=== PATIENT | female | born 1955 | race American Indian/Alaskan Native ===

== ENCOUNTER 2017-10-19 15:26 | Emergency (ER) | payer BC ==
[2017-10-19 15:33] VITALS: BP 153/82
--- NOTE | 2017-10-19 16:13 | Emergency Department Report ---
Eye Injury/Foreign Body - HPI Duration: 2 Days Eye Location: Left Severity: Moderate Eye Symptoms: Eye Pain: Yes, Blurred Vision: Yes, Eye Redness: Yes, Grinding/ Hammering Metal: No, Used Eye Protection: No, Contact Lens Use: No, Recalls Injury: No, Photophobia: Yes Other History: Patient is a nurse here at the hospital. The patient is a 62- year-old female who presents with left eye pain. Patient states whenever like his eye becomes intensely painful. Patient noted 2 days ago she started getting some mild redness to the eye itching and burning. ED Review of Systems ROS: Stated complaint: EYE IRRITATION Other details as noted in HPI Comment: All other systems reviewed and negative ED Past Medical Hx - Past Medical History Previous Medical History?: No - Surgical History Past Surgical History?: Yes Additional Surgical History: Tubal ligation - Social History Smoking Status: Never Smoker Substance Use Type: None - Medications Home Medications: Home Medications Medication Instructions Recorded Confirmed Last Taken Type HYDROcodone/APAP 5-325 [[place] 1 each PO Q6HR PRN #12 tablet 10/19/17 Unknown Rx 5/325] Homatropine HBr [Homatropine 1 drop OP BID 2 Days #5 ml 10/19/17 Unknown Rx Hydrobromide] Moxifloxacin HCl [Vigamox 0.5%] 1 drop OP Q8HR #1 bottle 10/19/17 Unknown Rx Naphazoline HCl/Pheniramine 1 drop OP TID #1 bottle 10/19/17 Unknown Rx [Naphcon-A Eye Drops] Eye Injury Exam - Exam General: Vital signs noted. No distress. Alert and acting appropriately. Patient has pain with consensual light reflex. Left eye has scleral injection. Extraocular movements are intact. Patient's heart and lungs are within normal limits general she is an O 3 in no acute distress. ED Course Vital Signs 10/19/17 15:30 Temperature 98.4 F Pulse Rate 65 Respiratory 16 Rate Blood Pressure 153/82 O2 Sat by Pulse 97 Oximetry ED Medical Decision Making - Medical Decision Making Patient will be started on Vigamox Naphcon and homatropine Critical care attestation.: If time is entered above; I have spent that time in minutes in the direct care of this critically ill patient, excluding procedure time. ED Disposition Clinical Impression: Bacterial conjunctivitis of left eye, Iritis of left eye Disposition: [id number] TO HOME OR SELFCARE Is pt being admited?: No Does the pt Need Aspirin: No Condition: Stable Instructions: Iritis (ED) Prescriptions: Homatropine HBr [Homatropine Hydrobromide] 1 drop OP BID 2 Days #5 ml HYDROcodone/APAP 5-325 [[place] 5/325] 1 each PO Q6HR PRN #12 tablet PRN Reason: Pain Moxifloxacin HCl [Vigamox 0.5%] 1 drop OP Q8HR #1 bottle Naphazoline HCl/Pheniramine [Naphcon-A Eye Drops] 1 drop OP TID #1 bottle Referrals: RYAN BLOUNT MD [Staff Physician] - 3-5 Days
== END 2017-10-19 16:32 | disposition home or self-care (01) ==
LOC: ED 15:26
DX: H10.89 Other conjunctivitis (principal); H20.9 Unspecified iridocyclitis; Z98.51 Tubal ligation status
CPT/HCPCS: 99282

== ENCOUNTER 2020-06-03 09:25 | Outpatient (CLI) | payer BC ==
--- NOTE | 2020-06-03 11:54 | Mammography Report ---
BILATERAL DIGITAL SCREENING MAMMOGRAM WITH CAD HISTORY: Screening mammogram. TECHNIQUE: Routine digital mammographic imaging performed. This examination was interpreted with minnie harp benefit of Computer-aided Detection analysis. COMPARISON: None currently available. The patient reports prior mammograms at [facility]. We will request these for comparison purposes. FINDINGS: Breast Density: scattered fibroglandular appearance of the breast tissue. Digital CC and MLO views demonstrate suspected low-density oval lobulated lesion in the left upper ou ter breast. No suspicious findings within the right breast. IMPRESSION: Suspected low-density oval lobulated lesion left upper outer breast. The patient reports prior mammo grams at an outside facility. These will be requested for comparison. An addendum will be added to is report once those images are available. BIRADS 0-Incomplete: Needs additional imaging evaluation FURTHER INFORMATION: According to the [employer], yearly mammograms are recommend ed starting at age 40 and continuing as long as a woman is in good health. Clinical Breast Exams shou ld be part of a periodic health exam-about every 3 years for women in their 20s and 30s and every yea r for women 40 and over. Breast self exam is an option for women starting in their 20s. Any breast ch kendal noted on a breast self exam should be reported promptly to the patient's healthcare provider. Br east MRI is recommended for women with an approximately 20-25% or greater lifetime risk of breast can cer, including women with a strong family history of breast or ovarian cancer and women who have been treated for Hodgkin's disease. A negative Mammography report should not discourage follow up or biopsy of a clinically significant f inding and/or abnormality. Dense breast tissue may obscure small neoplasms. The patient will be entered into a reminder system with a target due date for the next screening mamm ogram. Signer Name: Mike Kelly MD Signed: 06/03/2020 11:49 AM Workstation Name: [id number]
== END 2020-06-03 09:26 | disposition home or self-care (01) ==
LOC: MAMMO 09:25
PROVIDERS: ATTEND Physician Assistant Medical
DX: Z12.31 Encounter for screening mammogram for malignant neoplasm of breast (principal)
CPT/HCPCS: 77067

== ENCOUNTER 2021-09-28 10:27 | Outpatient (CLI) | payer BC ==
--- NOTE | 2021-09-29 11:04 | Mammography Report ---
DIGITAL SCREENING MAMMOGRAM WITH CAD, 09/28/2021 CLINICAL INFORMATION / INDICATION: Routine screening TECHNIQUE: Digital bilateral 2D mammography was obtained in the craniocaudal and mediolateral obliqu e projections. This examination was interpreted with the benefit of Computer-Aided Detection analysis . COMPARISON: 06/03/2020 FINDINGS: Breast Density: There are scattered areas of fibroglandular density. No dominant mass, suspicious calcifications, or architectural distortion in either breast. IMPRESSION: No mammographic evidence of malignancy. Follow up recommendation: Routine yearly BI-RADS Category 1: NEGATIVE A "normal" or negative report should not discourage follow up or biopsy of a clinically significant f inding. A written summary of these findings will be mailed to the patient. The patient will be entered into a mammography reporting system which will generate a reminder letter for the patient's next appointmen t at the appropriate interval. The [employer] recommends yearly mammograms starting at age 40 and continuing as l manav as a woman is in good health. Breast MRI is recommended for women with an approximate 20-25% or greater lifetime risk of breast cancer, including women with a strong family history of breast or ova aspen cancer or who have been treated for Hodgkin's disease. Signer Name: Kaleb Falk MD Signed: 09/29/2021 11:00 AM Workstation Name: [id number]
== END 2021-09-28 10:28 | disposition home or self-care (01) ==
LOC: SPVWC 10:27
PROVIDERS: ATTEND Internal Medicine
DX: Z12.31 Encounter for screening mammogram for malignant neoplasm of breast (principal)
CPT/HCPCS: 77067